=== PATIENT | female | born 1980 | race Caucasian/White ===

== ENCOUNTER 2016-09-09 09:31 | Day surgery (SDC) | payer MEDICAID ==
[~2016-09-09] VITALS: Ht 149.9 cm; Wt 70.8 kg
[2016-09-09] VITALS (13 sets, daily range): BP systolic 86–116; BP diastolic 45–65; PULSE 62–86; RESP 14–18; Ht 149.9 cm; Wt 70.8 kg
[2016-09-09 10:17] LABS: ADD SCAN DIFF NO
[2016-09-09 10:36] LABS: BASOPHILS % 0.4 % (0.0-2.0); EOSINOPHILS # 0.1 10^3/ul (0.0-0.5); EOSINOPHILS % 1.8 % (0.0-7.0); HEMATOCRIT 37.2 % (37.0-47.0); LYMPHOCYTES # 1.7 10^3/ul (0.8-2.9); LYMPHOCYTES % 22.8 % (15.0-51.0); MEAN CORPUSCULAR HEMOGLOBIN 26.7 pg (29.0-33.0); MEAN CORPUSCULAR HGB CONC 32.3 g/dl (32.0-37.0); MEAN CORPUSCULAR VOLUME 82.9 fl (82.0-101.0); MEAN PLATELET VOLUME 10.3 fl (7.4-10.4); MONOCYTE # 0.6 10^3/ul (0.3-0.9); MONOCYTES % 7.5 % (0.0-11.0); NEUTROPHIL # 5.1 10^3/ul (1.6-7.5); NEUTROPHILS % 67.2 % (39.0-77.0); PLATELET COUNT 249 10^3/UL (140-415); RED BLOOD COUNT 4.49 10^6/ul (4.20-5.40); WHITE BLOOD COUNT 7.6 10^3/ul (4.8-10.8)
[2016-09-09 10:37] LABS: ADD UMIC YES; UR ASCORBIC ACID NEGATIVE (NEGATIVE); UR BILIRUBIN (Dip) NEGATIVE (NEGATIVE); UR BLOOD (Dip) NEGATIVE (NEGATIVE); UR CLARITY SLIGHTLY CLOUDY (CLEAR); UR COLOR YELLOW (YELLOW); UR GLUCOSE (Dip) NEGATIVE (NEGATIVE); UR KETONES (Dip) NEGATIVE (NEGATIVE); UR LEUKOCYTE ESTERASE (Dip) 1+ Leu/ul (NEGATIVE); UR NITRITE (Dip) NEGATIVE (NEGATIVE); UR RBC 3 /HPF (0-5); UR SPECIFIC GRAVITY (Dip) 1.016 (1.003-1.030); UR SQUAMOUS EPITHELIAL CELL MODERATE /HPF (FEW); UR TOTAL PROTEIN (Dip) NEGATIVE (NEGATIVE); UR UROBILINOGEN (Dip) NEGATIVE (NEGATIVE)
[2016-09-09 10:38] LABS: INR 0.94; PROTIME 12.6 Sec (12.2-14.2)
[2016-09-09 10:42] LABS: ALBUMIN 3.9 g/dl (3.3-4.9); ALBUMIN/GLOBULIN RATIO 1.3; BILIRUBIN,INDIRECT 0.3 mg/dl (0-1.1); BILIRUBIN,TOTAL 0.3 mg/dl (0.2-1.3); TOTAL PROTEIN 6.9 g/dl (6.1-8.1)
[2016-09-09 10:45] LABS: CREATININE 0.56 mg/dl (0.44-1.00); POTASSIUM 3.8 mmol/L (3.5-5.1)
[2016-09-09 10:46] LABS: CALCIUM 8.8 mg/dl (8.4-10.2)
[2016-09-09] MEDS ORDERED: ROCURONIUM 50 MG INJ ONE (12:45)
[2016-09-09] MEDS ORDERED: MEPERIDINE 100 MG INJ ONE (12:45)
[2016-09-09] MEDS ORDERED: LIDOCAINE 2% (SDV) 5 ML INJ ONE (12:45)
[2016-09-09] MEDS ORDERED: NEOSTIGMINE 3 MG/3 ML SYRINGE ONE (12:45)
[2016-09-09] MEDS ORDERED: PROPOFOL 20 ML ONE (12:45)
[2016-09-09] MEDS ORDERED: GLYCOPYRROLATE 1 MG INJ ONE (12:45)
[2016-09-09] MEDS ORDERED: SUCCINYLCHOLINE CHLORIDE 100 MG/5 ML SYG IV ONE (12:45)
[2016-09-09] MEDS ORDERED: ONDANSETRON 4 MG INJ IV PRN (13:00)
[2016-09-09] MEDS ORDERED: MIDAZOLAM 1 MG/ML 2 ML INJ IV PRN (13:00)
[2016-09-09] MEDS ORDERED: FENTAnyl 50 MCG/ML VIAL IV PRN ×2 (13:00)
[2016-09-09] MEDS ORDERED: MEPERIDINE 25 MG INJ IV PRN (13:00)
[2016-09-09] MEDS ORDERED: morphine (1 MG/ML) 10ML SYRINGE IV PRN ×3 (13:00)
[2016-09-09] MEDS ORDERED: OXYCODONE/ACETAMINOPHEN (5/325) TAB PO PRN ×2 (13:00)
[2016-09-09] MEDS ORDERED: METOCLOPRAMIDE 10 MG INJ IV PRN (13:00)
[2016-09-09] MEDS ORDERED: DIPHENHYDRAMINE 50 MG INJ IV PRN (13:00)
[2016-09-09] MEDS ORDERED: BUPIVACAINE 0.25%/EPI (SDV) 30 ML INJ ONE (13:05)
[2016-09-09] MEDS ORDERED: CEFAZOLIN 1 GM INJ ONE (13:07)
[2016-09-09] MEDS ORDERED: ONDANSETRON 4 MG INJ ONE (13:17)
[2016-09-09] MEDS: FENTAnyl 50 MCG/ML VIAL IV PRN ×4 (14:16→14:52)
--- NOTE | 2016-09-09 16:59 | OPR ---
Date/Time of Note Date/Time of Note DATE: 09/09/16 TIME: 16:38 Operative Report Free Text/Dictation Preop diagnosis Request for voluntary sterilization bilateral tubal ligation Postop diagnosis request for voluntary sterilization bilateral tubal ligation Procedure Minilaparotomy bilateral tubal ligation Surgeon Dr. JENNIFER JIN Chargeback Specialist DR ARNOLD ROACH Anesthesia general Anesthesiologist Dr. Kuhn Under satisfactory general anesthesia patient prepped and draped in supine position small 2 inch Pfannenstiel incision was made incision carried through the subcutaneous tissue bleeders brought under control with electrocautery fascia incised to the length of incision rectus muscle divided in midline peritoneum exposed and entered through a transverse incision, exploration of abdomen noted normal size uterus normal-appearing bilateral tubes and ovaries, right fallopian tube was identified the ampullar segment of the tube grasped by a [place] a loop was made suture material used #0 plain catgut which was reinforced with the same suture material the top of the loop three quarter of inch excised cut end of the tube cauterized, specimen submitted to the pathology, the same procedure performed for the opposite, peritoneal cavity irrigated with warm saline, sponge needle and instrument reported to be correct , abdominal peritoneum approximated and closed with 2-0 chromic catgut continuously, rectus muscle approximated with 2 interrupted 2-0 chromic catgut, fascia closed with PDS #0 subcutaneous tissue approximated with interrupted 2-0 chromic catgut skin closed with subcuticular 3-0 Monocryl at the end 20 cc of Marcaine quarter percent injected under the surgical incision, estimated blood loss negligent less than 5 cc patient tolerated procedure transferred to recovery room in good condition Procedure Date: Sep 09, 2016 Preoperative Diagnosis Request for bilateral tubal ligation Postoperative Diagnosis Minilaparotomy bilateral tubal ligation [place] method Operation Performed Minilaparotomy bilateral tubal ligation Surgeon: LIZANDRO LE MD Chargeback Specialist: GERA ROACH MD guest services assistant: ARELY KUHN MD Anesthesia: general Estimated Blood Loss: minimal Specimens Segment of the ampulla of both fallopian tube right and left sent to pathology Complications: None Pt Condition Post Procedure: stable Operative\Procedure Findings Minilaparotomy bilateral tubal ligation Exploration of abdomen normal-appearing tubes and ovaries normal size uterus Procedure Description Minilaparotomy bilateral tubal ligation JENNIFER JIN MD Sep 09, 2016 16:50
== END 2016-09-09 17:20 | disposition home or self-care (01) ==
LOC: SDS 09:31
PROVIDERS: ATTEND Obstetrics & Gynecology
DX: Z30.2 Encounter for sterilization (principal); E66.9 Obesity, unspecified; Z68.31 Body mass index [BMI] 31.0-31.9, adult
CPT/HCPCS: 58600; 80053; 81001; 85025; 85610; 85730; 86850; 86900; 86901; 88302; J0690; J2175; J2405; J2710; J3010; J7999; Z7512; Z7610